=== PATIENT | male | born 1955 | race Caucasian/White ===

== ENCOUNTER 2022-10-02 16:06 | Outpatient (CLI) | payer BC, SELFPAY ==
[2022-10-02 13:31] LABS: Chloride* 106 mmol/L (96-114); Potassium* 4.4 mmol/L (3.6-5.1); Sodium* 139 mmol/L (135-149)
[2022-10-02 13:33] LABS: Bilirubin Total* 0.5 mg/dL (0.1-1.5); Carbon Dioxide* 29 mmol/L (20-32); Cholesterol* 191 mg/dL (90-199); Estimated Glomerular Filt Rate 83 ml/min; Total Protein* 6.8 g/dL (6.0-8.3)
[2022-10-02 13:34] LABS: Alanine Aminotransferase* 36 U/L (4-50); Alkaline Phosphatase* 77 U/L (40-150); Aspartate Amino Transferase* 29 U/L (12-35); Blood Urea Nitrogen* 12 mg/dL (7-30); Calcium* 8.9 mg/dL (8.4-10.6); Glucose* 106 mg/dL (60-115); HDL Cholesterol* 45 mg/dL (>=40); LDL Cholesterol Calculated 106 mg/dL (<100); Triglycerides* 200 mg/dL (40-149)
[2022-10-02 14:04] LABS: PSA Diagnostic* 2.94 ng/mL (0.10-4.00)
== END 2022-10-02 16:07 | disposition home or self-care (01) ==
PROVIDERS: PCP Internal Medicine; Visit Provider Internal Medicine
DX: E78.5 Hyperlipidemia, unspecified (principal); I10 Essential (primary) hypertension; Z12.5 Encounter for screening for malignant neoplasm of prostate
CPT/HCPCS: 80053; 80061; 84153

== ENCOUNTER 2023-03-03 10:53 | Emergency (ER) | payer BC, SELFPAY ==
[2023-03-03 11:00] VITALS: BP 151/70; PULSE 92; RESP 18; TEMP 36.4; O2SAT 97; BMI 36.9
--- NOTE | 2023-03-03 11:09 | CRLHL7_ITS ---
For Patients: As a result of the Century Cures Act, medical imaging exams and procedure reports are released immediately into your electronic medical record. You may view this report before your referring provider. If you have questions, please contact your health care provider. Indication: Pain, difficulty standing Comparison: None available. Technique: AP, lateral, and oblique views left foot were obtained. Findings: There is no displaced fracture or dislocation. There are hammertoe changes of the 2nd through 5th digits. There is mild osteopenia the metatarsophalangeal joints. There is no evidence of bony erosion. There is mild forefoot soft tissue swelling. Impression: Moderate forefoot soft tissue swelling with minimal osteopenia of the metatarsophalangeal joints which may represent mild inflammatory changes. No evidence of displaced fracture or bony erosion. Dictated by Akil Steen MD @ 03/03/2023 1:15:14 PM (Electronically Signed)
[2023-03-03] MEDS: HYDROCODONE/ACETAMIN 7.5-325 TABLET 1 TAB PO (11:15)
[2023-03-03] MEDS: KETOROLAC 10 MG TABLET PO (11:15)
--- NOTE | 2023-03-03 11:19 | ED.GENADULT ---
HPI - General Adult General Time Seen by Provider: 11:19 Date Seen: 03/03/23 Chief complaint: Extremity Pain/Injury, Lower Stated complaint: L foot pain, difficulty standing Time Seen by Provider: 03/03/23 10:57 Source: patient Mode of arrival: wheelchair Limitations: physical limitation History of Present Illness HPI narrative: Patient is a 67 year white male who has been fairly healthy other than elevated BMI, hypertension, dyslipidemia, who uses CPAP for NAYLA presents with severe left foot pain. He reports that he was doing some gurgling yesterday and stepping on a raised area at this door but did not think he injured himself. He had severe pain starting today. He did reports that it is under his foot just proximal to the ball of his foot. He denies redness or injury denies a history of gout. He has no other significant medical issues. He is not allergic to medications Related Data Previous Rx's Medication Instructions Recorded losartan 25 mg tablet 25 mg PO QDAY #90 tabs 06/27/22 metoprolol tartrate 50 mg tablet 50 mg PO BID Hypertension #180 tabs 10/10/22 mupirocin calcium 2 % topical cream 1 applic topical QDAY Rash #30 10/10/22 grams amlodipine 10 mg tablet 10 mg PO QDAY Hypertension #90 tabs 10/15/22 zolpidem 10 mg tablet 10 mg PO DAILY PRN insomnia #30 02/06/23 tabs hydrocodone 5 mg-acetaminophen 325 1 tab PO Q12H PRN pain #10 tabs 03/03/23 mg tablet ketorolac 10 mg tablet 10 mg PO Q8H PRN pain #10 tabs 03/03/23 Allergies Allergy/AdvReac Type Severity Reaction Status Date / Time No Known Drug Allergies Allergy Verified 03/03/23 11:00 Review of Systems Status of ROS: Reports: 6 or more systems reviewed and unremarkable except as noted in History and below [facility] Medical History Colon polyp ?K63.5 - Polyp of colon (ICD-10) History of adenomatous polyp of colon ?Z86.010 - Personal history of colonic polyps (ICD-10) NAYLA on CPAP ?G47.33 - Obstructive sleep apnea (adult) (pediatric) (ICD-10) ?Z99.89 - Dependence on other enabling machines and devices (ICD-10) Dyslipidemia ?E78.5 - Hyperlipidemia, unspecified (ICD-10) Allergic rhinitis ?J30.9 - Allergic rhinitis, unspecified (ICD-10) Hypertension ?I10 - Essential (primary) hypertension (ICD-10) Insomnia ?G47.00 - Insomnia, unspecified (ICD-10) Surgical History History of surgery on left wrist ?Z98.890 - Other specified postprocedural states (ICD-10) History of laparoscopic appendectomy ?Z90.49 - Acquired absence of other specified parts of digestive tract (ICD-10) Family History Father Coronary artery disease, Onset Age: 76 Brother Coronary artery disease, Onset Age: 59 Unknown High blood pressure Ovarian cancer Pancreatic cancer Diabetes Colon cancer COPD (chronic obstructive pulmonary disease) Social History Narrative: Nonsmoker. No illicit drug use. Rare EtOH. Smoking Status: Never smoker Do you use any of these nicotine containing products: None Second hand tobacco smoke exposure: No How often do you have a drink containing alcohol: 2-4 times a month How many standard drinks containing alcohol do you have on a typical day: 3 or 4 How often do you have six or more drinks on one occasion: Never AUDIT-C Alcohol total score: 3 Non-prescribed substance use: denies use Little interest or pleasure in doing things: not at all Feeling down, depressed, or hopeless: not at all service: No Exam Narrative: Exam Narrative: Objective: Vital signs show elevated blood pressure, afebrile Left foot exam shows no redness warmth erythema Got exquisite tenderness just proximal to the ball of the foot, no warmth erythema there No 1st MTP joint pain medially. No ascending cellulitic changes. No swelling of the foot or ankle Const: Vital Signs, click to edit/add: Vital Signs - 24 hr 03/03/23 11:00 Temperature 97.6 F Pulse Rate [Pulse Oximeter] 92 Respiratory Rate 18 Blood Pressure [Ri ght Upper Arm] 151/70 H Pulse Oximetry 97 Oxygen Delivery Me thod Room Air Course Vital Signs Vital signs: Initial Vital Signs Temperature 97.6 F 03/03/23 11:00 Temperature Source Temporal Artery Scan 03/03/23 11:00 Pulse Rate 92 03/03/23 11:00 Pulse Rhythm Regular 03/03/23 11:00 Respiratory Rate 18 03/03/23 11:00 Blood Pressure 151/70 H 03/03/23 11:00 Blood Pressure Mean 97 03/03/23 11:00 Blood Pressure Position Supine 03/03/23 11:00 Pulse Oximetry 97 03/03/23 11:00 Oxygen Delivery Method Room Air 03/03/23 11:00 Vital Signs Temperature 97.6 F 03/03/23 11:00 Pulse Rate 92 03/03/23 11:00 Respiratory Rate 18 03/03/23 11:00 Blood Pressure 151/70 H 03/03/23 11:00 Pulse Oximetry 97 03/03/23 11:00 Oxygen Delivery Method Room Air 03/03/23 11:00 Temperature 97.6 F 03/03/23 11:00 Pulse Rate 92 03/03/23 11:00 Respiratory Rate 18 03/03/23 11:00 Blood Pressure 151/70 H 03/03/23 11:00 Pulse Oximetry 97 03/03/23 11:00 Oxygen Delivery Method Room Air 03/03/23 11:00 Medical Decision Making MDM Narrative Medical decision making narrative: [age] year white male with onset of severe left foot pain. Rule out fracture rule out gout rule out infection. Will patient will get lab studies, x-ray of the left foot. At this point will give him because he is in pretty significant amount of pain [place] orally and Toradol orally. Disposition pending findings above Addendum: 12:41 p.m.. Patient has a negative x-ray by my review his uric acid level slightly elevated, his white count is normal. He got some good relief from the [place] and Toradol that he got. I will send him home with Toradol and a few [place]. He has to be careful with this with sleep apnea. He also has elevated uric acid he will weight bear as only as tolerated, and would recommend he see Dr. Wen regarding his elevated uric acid as well. He was comfortable this plan will return as needed. Lab Data Labs: Lab Results 03/03/23 03/03/23 Range/Units 11:45 11:45 WBC 7.28 (4.50-11.00) K/uL RBC 4.38 (4.30-5.90) m/uL Hgb 14.1 (13.5-17.5) gm/dL Hct 41.6 (37.0-53.0) % MCV 95 (80-100) fL MCH 32 (26-34) pg MCHC 34 (32-36) gm/dL RDW Coeff of Estela 12.1 (11.5-15.5) % Plt Count 197 (140-440) K/uL Neut % (Auto) 79.6 H (42.0-72.0) % Lymph % (Auto) 12.0 L (20-44) % [place] % (Auto) 7.7 (0.0-11.0) % Eos % (Auto) 0.1 (0.0-7.0) % Baso % (Auto) 0.3 (0.0-3.0) % Neut # (Auto) 5.80 (1.7-7.0) K/uL Lymph # (Auto) 0.90 (0.90-2.90) K/uL [place] # (Auto) 0.60 (0.00-0.90) K/UL Eos # (Auto) 0.01 (0.00-0.50) K/uL Baso # (Auto) 0.02 (0.00-0.30) K/uL Sodium 136 (135-149) mmol/L Potassium 3.7 (3.6-5.1) mmol/L Chloride 101 (96-114) mmol/L Carbon Dioxide 26 (20-32) mmol/L BUN 12 (7-30) mg/dL Creatinine 0.9 (0.5-1.5) mg/dL Estimated Creat Clear 82.12 Estimated GFR 94 ml/min Glucose 120 H (60-115) mg/dL Uric Acid 9.6 H Cancelled (2.2-8.4) mg/dL Calcium 9.3 (8.4-10.6) mg/dL C-Reactive Protein 3.4 H (0.5-1.0) mg/dL Discharge Plan Discharge Clinical Impression: Acute pain of left foot Patient Disposition: Home w/ Parent or Adult Condition: Stable Additional Instructions: Limited weight-bearing, Toradol as needed, [place] sparingly as it may cause worsening sleep apnea. Follow-up with your doctor within the next week or 2, talk about elevated uric acid level. Activity Level: Light activity Discharge Diet: Heart Healthy (2 gm sodium, low fat) Prescriptions: New ketorolac 10 mg tablet 10 mg PO Q8H PRN (Reason: pain) Qty: 10 0RF hydrocodone-acetaminophen 5-325 mg tablet 1 tab PO Q12H PRN (Reason: pain) Qty: 10 0RF No Action metoprolol tartrate 50 mg tablet 50 mg PO BID Qty: 180 3RF mupirocin calcium 2 % cream 1 applic topical QDAY Qty: 30 0RF losartan 25 mg tablet 25 mg PO QDAY Qty: 90 1RF amlodipine 10 mg tablet 10 mg PO QDAY Qty: 90 3RF zolpidem 10 mg tablet 10 mg PO DAILY PRN (Reason: insomnia) Qty: 30 0RF Follow Up/Referrals: Hamilton Calixto MD [Primary Care Provider] - Stand Alone Forms: [employer] Info Instructions
[2023-03-03 11:54] LABS: Basophils Absolute Auto 0.02 K/uL (0.00-0.30); Basophils Percent Auto 0.3 % (0.0-3.0); Eosinophils Absolute Auto 0.01 K/uL (0.00-0.50); Eosinophils Percent Auto 0.1 % (0.0-7.0); Hematocrit 41.6 % (37.0-53.0); Hemoglobin* 14.1 gm/dL (13.5-17.5); Immature Granulocytes Abs Auto 0.02 K/uL (0.00-0.30); Immature Granulocytes Pct Auto 0.3 %; Mean Corpuscular HGB Conc 34 gm/dL (32-36); Mean Corpuscular Hemoglobin 32 pg (26-34); Mean Corpuscular Volume 95 fL (80-100); Monocytes Percent Auto 7.7 % (0.0-11.0); Neutrophils Percent Auto 79.6 % (42.0-72.0); Platelet Count* 197 K/uL (140-440); RDW Coefficient of Variation % 12.1 % (11.5-15.5); Red Blood Count 4.38 m/uL (4.30-5.90); White Blood Count* 7.28 K/uL (4.50-11.00)
[2023-03-03 12:00] LABS: Slide Review Reflex No
[2023-03-03 12:05] LABS: Chloride* 101 mmol/L (96-114); Potassium* 3.7 mmol/L (3.6-5.1); Sodium* 136 mmol/L (135-149)
[2023-03-03 12:07] LABS: Creatinine* 0.9 mg/dL (0.5-1.5); Est. Creatinine Clearance* 82.12; Estimated Glomerular Filt Rate 94 ml/min
[2023-03-03 12:08] LABS: Blood Urea Nitrogen* 12 mg/dL (7-30); Carbon Dioxide* 26 mmol/L (20-32); Glucose* 120 mg/dL (60-115)
[2023-03-03 12:09] LABS: Calcium* 9.3 mg/dL (8.4-10.6); Uric Acid* 9.6 mg/dL (2.2-8.4)
[2023-03-03 12:11] LABS: C Reactive Protein* 3.4 mg/dL (0.5-1.0)
--- NOTE | 2023-03-03 12:42 | ED_ITS ---
HPI - General Adult General Chief complaint: Extremity Pain/Injury, Lower Stated complaint: L foot pain, difficulty standing Time Seen by Provider: 03/03/23 10:57 Source: patient Mode of arrival: wheelchair Limitations: physical limitation Related Data Previous Rx's Medication Instructions Recorded losartan 25 mg tablet 25 mg PO QDAY #90 tabs 06/27/22 metoprolol tartrate 50 mg tablet 50 mg PO BID Hypertension #180 tabs 10/10/22 mupirocin calcium 2 % topical cream 1 applic topical QDAY Rash #30 10/10/22 grams amlodipine 10 mg tablet 10 mg PO QDAY Hypertension #90 tabs 10/15/22 zolpidem 10 mg tablet 10 mg PO DAILY PRN insomnia #30 02/06/23 tabs hydrocodone 5 mg-acetaminophen 325 1 tab PO Q12H PRN pain #10 tabs 03/03/23 mg tablet ketorolac 10 mg tablet 10 mg PO Q8H PRN pain #10 tabs 03/03/23 Allergies Allergy/AdvReac Type Severity Reaction Status Date / Time No Known Drug Allergies Allergy Verified 03/03/23 11:00 [facility] Medical History Colon polyp ?K63.5 - Polyp of colon (ICD-10) History of adenomatous polyp of colon ?Z86.010 - Personal history of colonic polyps (ICD-10) NAYLA on CPAP ?G47.33 - Obstructive sleep apnea (adult) (pediatric) (ICD-10) ?Z99.89 - Dependence on other enabling machines and devices (ICD-10) Dyslipidemia ?E78.5 - Hyperlipidemia, unspecified (ICD-10) Allergic rhinitis ?J30.9 - Allergic rhinitis, unspecified (ICD-10) Hypertension ?I10 - Essential (primary) hypertension (ICD-10) Insomnia ?G47.00 - Insomnia, unspecified (ICD-10) Surgical History History of surgery on left wrist ?Z98.890 - Other specified postprocedural states (ICD-10) History of laparoscopic appendectomy ?Z90.49 - Acquired absence of other specified parts of digestive tract (ICD- 10) Family History Father Coronary artery disease, Onset Age: 76 Brother Coronary artery disease, Onset Age: 59 Unknown High blood pressure Ovarian cancer Pancreatic cancer Diabetes Colon cancer COPD (chronic obstructive pulmonary disease) Social History Narrative: Nonsmoker. No illicit drug use. Rare EtOH. Smoking Status: Never smoker Do you use any of these nicotine containing products: None Second hand tobacco smoke exposure: No How often do you have a drink containing alcohol: 2-4 times a month How many standard drinks containing alcohol do you have on a typical day: 3 or 4 How often do you have six or more drinks on one occasion: Never AUDIT-C Alcohol total score: 3 Non-prescribed substance use: denies use Little interest or pleasure in doing things: not at all Feeling down, depressed, or hopeless: not at all service: No Exam Const: Vital Signs, click to edit/add: Vital Signs - 24 hr 03/03/23 11:00 Temperature 97.6 F Pulse Rate [Pulse Oximeter] 92 Respiratory Rate 18 Blood Pressure [Ri ght Upper Arm] 151/70 H Pulse Oximetry 97 Oxygen Delivery Me thod Room Air Course Vital Signs Vital signs: Initial Vital Signs Temperature 97.6 F 03/03/23 11:00 Temperature Source Temporal Artery Scan 03/03/23 11:00 Pulse Rate 92 03/03/23 11:00 Pulse Rhythm Regular 03/03/23 11:00 Respiratory Rate 18 03/03/23 11:00 Blood Pressure 151/70 H 03/03/23 11:00 Blood Pressure Mean 97 03/03/23 11:00 Blood Pressure Position Supine 03/03/23 11:00 Pulse Oximetry 97 03/03/23 11:00 Oxygen Delivery Method Room Air 03/03/23 11:00 Vital Signs Temperature 97.6 F 03/03/23 11:00 Pulse Rate 92 03/03/23 11:00 Respiratory Rate 18 03/03/23 11:00 Blood Pressure 151/70 H 03/03/23 11:00 Pulse Oximetry 97 03/03/23 11:00 Oxygen Delivery Method Room Air 03/03/23 11:00 Temperature 97.6 F 03/03/23 11:00 Pulse Rate 92 03/03/23 11:00 Respiratory Rate 18 03/03/23 11:00 Blood Pressure 151/70 H 03/03/23 11:00 Pulse Oximetry 97 03/03/23 11:00 Oxygen Delivery Method Room Air 03/03/23 11:00 Medical Decision Making Lab Data Labs: Lab Results 03/03/23 03/03/23 Range/Units 11:45 11:45 WBC 7.28 (4.50-11.00) K/uL RBC 4.38 (4.30-5.90) m/uL Hgb 14.1 (13.5-17.5) gm/dL Hct 41.6 (37.0-53.0) % MCV 95 (80-100) fL MCH 32 (26-34) pg MCHC 34 (32-36) gm/dL RDW Coeff of Estela 12.1 (11.5-15.5) % Plt Count 197 (140-440) K/uL Neut % (Auto) 79.6 H (42.0-72.0) % Lymph % (Auto) 12.0 L (20-44) % [place] % (Auto) 7.7 (0.0-11.0) % Eos % (Auto) 0.1 (0.0-7.0) % Baso % (Auto) 0.3 (0.0-3.0) % Neut # (Auto) 5.80 (1.7-7.0) K/uL Lymph # (Auto) 0.90 (0.90-2.90) K/uL [place] # (Auto) 0.60 (0.00-0.90) K/UL Eos # (Auto) 0.01 (0.00-0.50) K/uL Baso # (Auto) 0.02 (0.00-0.30) K/uL Sodium 136 (135-149) mmol/L Potassium 3.7 (3.6-5.1) mmol/L Chloride 101 (96-114) mmol/L Carbon Dioxide 26 (20-32) mmol/L BUN 12 (7-30) mg/dL Creatinine 0.9 (0.5-1.5) mg/dL Estimated Creat Clear 82.12 Estimated GFR 94 ml/min Glucose 120 H (60-115) mg/dL Uric Acid 9.6 H Cancelled (2.2-8.4) mg/dL Calcium 9.3 (8.4-10.6) mg/dL C-Reactive Protein 3.4 H (0.5-1.0) mg/dL Discharge Plan Discharge Clinical Impression: Acute pain of left foot Patient Disposition: Home w/ Parent or Adult Condition: Stable Additional Instructions: Limited weight-bearing, Toradol as needed, [place] sparingly as it may cause worsening sleep apnea. Follow-up with your doctor within the next week or 2, talk about elevated uric acid level. Activity Level: Light activity Discharge Diet: Heart Healthy (2 gm sodium, low fat) Prescriptions: New ketorolac 10 mg tablet 10 mg PO Q8H PRN (Reason: pain) Qty: 10 0RF hydrocodone-acetaminophen 5-325 mg tablet 1 tab PO Q12H PRN (Reason: pain) Qty: 10 0RF No Action metoprolol tartrate 50 mg tablet 50 mg PO BID Qty: 180 3RF mupirocin calcium 2 % cream 1 applic topical QDAY Qty: 30 0RF losartan 25 mg tablet 25 mg PO QDAY Qty: 90 1RF amlodipine 10 mg tablet 10 mg PO QDAY Qty: 90 3RF zolpidem 10 mg tablet 10 mg PO DAILY PRN (Reason: insomnia) Qty: 30 0RF Follow Up/Referrals: Hamilton Calixto MD [Primary Care Provider] - Stand Alone Forms: [employer] Info Instructions
== END 2023-03-03 13:12 | disposition home or self-care (01) ==
PROVIDERS: Emergency Provider Family Medicine; PCP Internal Medicine
DX: M79.672 Pain in left foot (principal)
CPT/HCPCS: 36415; 73630; 80048; 84550; 85025; 86140; 99283; 99284; A9270

== ENCOUNTER 2023-10-10 07:40 | Outpatient (CLI) | payer BC, SELFPAY ==
--- OUTSIDE RECORDS SUMMARY | 2023-10-11 05:37 | XMS_ITS | Referral Summary ---
Author Name Unknown Organization [place] Address [facility] [place] [address] Care Team Providers Care Mental Retardation Nurse Name Role Phone Isak Dorado MD Primary Care Provider + Allergies No known active allergies Medications Medication Sig Dispensed Refills Start Date End Date Status NASONEX 50 MCG/ACT NA SUSP None Entered 0 Active IBUPROFEN 200 MG OR TABS 1 TABLET EVERY 4 TO 6 HOURS NEEDED 0 Active lisinopril (PRINIVIL/ZESTRIL) 10 MG tablet TAKE 1 TABLET BY MOUTH DAILY PATIENT IS DUE FOR ANNUAL LABS. 0 04/20/2019 Active mupirocin (BACTROBAN) 2 % external ointmentIndications: Cellulitis of abdominal wall Apply topically 2 times daily 22 g 1 04/25/2019 Active doxycycline monohydrate (ADOXA) 100 MG tabletIndications:Ce llulitis of abdominal wall Take 1 tablet (100 mg) by mouth daily 20 tablet 0 04/25/2019 Active Active Problems Problem Noted Date Diagnosed Date CARDIOVASCULAR SCREENING; LDL GOAL LESS THAN 160 07/02/2010 Immunizations Name Administration Dates Next Due Influenza (IIV3) PF 07/15/2007 Pneumococcal 23 valent 04/16/2006 TD,PF 7+ (Tenivac) 04/16/2006 04/16/2016 Social History Tobacco Use Types Packs/Day Years Used Date Smoking Tobacco: Never Smokeless Tobacco: Never Alcohol Use Standard Drinks/Week Comments Yes 0 (1 standard drink = 0.6 oz pur e alcohol) 8 beers weekly Sex and Gender Information Value Date Recorded Sex Assigned at Not on file Gender Identity Not on file Sexual Orientation Not on file Last Filed Vital Signs Vital Sign Reading Time Taken Comments Blood Pressure 148/76 04/25/2019 8:32 AM CDT Pulse 86 04/25/2019 8:32 AM CDT Temperature 36.7 ??C (98 ??F) 04/25/2019 8:32 AM CDT Respiratory Rate 16 04/25/2019 8:32 AM CDT Oxygen Saturation 97% 04/25/2019 8:32 AM CDT Inhaled Oxygen Concentration - - Weight 112.9 kg (249 lb) 04/25/2019 8:32 AM CDT Height 185.4 cm (6' 1) 04/25/2019 8:32 AM CDT Body Mass Index 32.85 04/25/2019 8:32 AM CDT Plan of Treatment Not on file Care Teams Mental Retardation Nurse Relationship Specialty Start Date End Date Isak Dorado MD PCP - General 04/25/19
--- OUTSIDE RECORDS SUMMARY | 2023-10-11 05:37 | XMS_ITS | Clinical Summary ---
Author Name Unknown Organization [place] Address [facility] [place] [address] Care Team Providers Care Slot Tag Inserter Name Role Phone Isak Dorado MD Primary [...] valent 04/16/2006 TD,PF 7+ (Tenivac) 04/16/2006 04/16/2016 Family History Medical History Relation Comments Heart Disease Brother of congesti ve heart failure 59 Heart Disease Father of congesti ve heart failure at 76 Hypertension Mother Relation Status Comments Brother Father Mother Social History Tobacco Use Types Packs/Day Years [...] of Treatment Not on file Care Teams Slot Tag Inserter Relationship Specialty Start Date End Date Isak Dorado MD PCP - General 04/25/19
--- OUTSIDE RECORDS SUMMARY | 2023-10-11 05:37 | XMS_ITS | Clinical Summary ---
Author Name Unknown Organization [facility] [place] [address] Care Team Providers Care Predatory Game Hunter Name Role Phone Pcp, No Primary Care Provider Unavailabl e Allergies No known active allergies Medications Medication Sig Dispensed Refills Start Date End Date Status fluticasone (50 mcg per actuation) nasal solution (FLONASE) Inhale 1 [place] into both nostrils once daily. 1 Bottle 0 05/14/2013 Active lisinopril (PRINIVIL; ZESTRIL) 10 mg tablet Take 1 tablet by mouth once daily. 0 10/15/2017 Active aspirin (ECOTRIN) 81 mg enteric coated tablet Take 1 tablet by mouth once daily with a meal. 0 10/15/2017 Active multivitamin capsule Take 1 capsule by mouth once daily. 0 10/15/2017 Active magnesium oxide (MAG-OX 400) 400 mg tablet Take 1 tablet by mouth once daily. 0 10/15/2017 Active Active Problems Problem Noted Date Diagnosed Date Diverticulosis of large intestine without hemorr ivette 10/15/2017 Polyp of colon 10/15/2017 History of colon polyps 10/15/2017 Adenomatous colon polyp 05/18/2013 Overview: Colonoscopy 05/2013 polyp repeat in 5 years Colonoscopy 10/2017 polyp, repeat in 5 years Social History Tobacco Use Types Packs/Day Years Used Date Smoking Tobacco: Never Smokeless Tobacco: Never Tobacco Cessation:Counseling Given: Yes Alcohol Use Standard Drinks/Week Comments Not Asked 0 (1 standard drink = 0.6 oz pur e alcohol) Sex and Gender Information Value Date Recorded Sex Assigned at Not on file Gender Identity Not on file Sexual Orientation Not on file Obstetrics History Last Filed Vital Signs Vital Sign Reading Time Taken Comments Blood Pressure 121/80 05/14/2013 8:33 AM CDT Pulse 61 05/14/2013 8:33 AM CDT Temperature - - Respiratory Rate - - Oxygen Saturation 97% 05/14/2013 8:33 AM CDT Inhaled Oxygen Concentration - - Weight - - Height - - Body Mass Index - - Plan of Treatment Health Maintenance Due Date Last Done Comments Tdap 1967 Depression screening for age 12+ 1968 BMI (ht and wt on same day) for age 18+ 1974 Hepatitis C screening for ag e 18-79 1974 Tetanus booster 1976 Lipids for age 45-75 2001 Zoster (shingles) series for age 50+ (1 of 2) 2006 Pneumococcal series for age 65+ (1 of 1 - PCV) 2021 Colonoscopy through age 75 10/15/202210/15, 10/15/2017, 05/14/2013, Additional history exists COVID-19 vaccine series (3 - 2022-24 season) 2023 05/28/2021, 04/21/2021 Influenza for age 65+ 05/03/2023 Care Teams Predatory Game Hunter Relationship Specialty Start Date End Date Pcp, No . PCP - General 03/30/13
== END 2023-10-10 07:41 | disposition home or self-care (01) ==
LOC: NFLDREF 10-11 05:35
PROVIDERS: PCP Internal Medicine; Referring Provider Internal Medicine; Visit Provider Internal Medicine
DX: E78.5 Hyperlipidemia, unspecified (principal); I10 Essential (primary) hypertension; M10.9 Gout, unspecified; Z12.5 Encounter for screening for malignant neoplasm of prostate
CPT/HCPCS: 80053; 80061; 84550; G0103

== ENCOUNTER 2023-11-19 08:30 | Outpatient (CLI) | payer BC, SELFPAY ==
--- NOTE | 2023-11-19 09:00 | CT_ITS ---
Patient: HEENA Booth [facility] Facility:?[facility] Patient ID:?[id number] Site Patient ID:?[id number]. Site :?[id number] Study:?CT-Head W/ and W/O Cont 124CC [id number]/19/2024 9:31:21 AM Ordering Physician:JAMAICA JACK Final Report: Indication: Dizziness. Technique: CT of the head with multiplanar reconstruction prior to and following administration 124 cc Isovue iodinated intravenous contrast. Comparison: None available. Findings: No acute intracranial hemorrhage. A focal hypodensity is noted within the left anterior centrum semiovale (series 4, image 36). No focus of abnormal contrast enhancement is identified. The ventricles are normal in size. Flow is preserved within the larger intracranial arteries. No suspicious calvarial lesion is identified. The orbits are unremarkable. The imaged paranasal sinuses and mastoid air cells are clear. Impression: 1. No acute intracranial abnormality. 2. 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 If there is ongoing clinical concern, MRI could be obtained for further evaluation. 3. No focus of abnormal enhancement. Please note that all CT scans at this facility use dose modulation, iterative reconstruction, and/or weight-based dosing when appropriate to reduce radiation dose to as low as reasonably achievable. Dictated by Matt Vazquez MD @ 11/19/2023 4:38:29 PM Signed by:?Matt Vazquez MD @11/19/2023 4:38:29 PM (Electronic Signature)
[2023-11-19 09:08] LABS: Creatinine* 0.9 mg/dL (0.5-1.5); Estimated Glomerular Filt Rate 94 ml/min
== END 2023-11-19 08:31 | disposition home or self-care (01) ==
PROVIDERS: PCP Internal Medicine; Visit Provider Internal Medicine
DX: R42 Dizziness and giddiness (principal)
CPT/HCPCS: 36415; 70470; 82565; Q9967

== ENCOUNTER 2023-12-12 10:00 | Outpatient (RCR) | payer BC, SELFPAY ==
--- NOTE | 2023-11-27 13:45 | PT.OPEX ---
PT [place] Outpatient Eval initial eval requires signature PT [facility] Outpatient Eval Start: 11/27/23 08:26 Freq: Status: Active Protocol: Document 11/27/23 08:29 BETO (Rec: 11/27/23 13:39 BETO [id number]) E-signed By John Loza DPT Physical Therapy Outpatient Evaluation Insurance Information Insurance Name [employer] Medical Diagnosis Medical Diagnosis and ICD Code (s) Benign paroxysmal positional vertigo, unspecified ear Treating Diagnosis and ICD Code(s) R posterior canal BPPV, imbalance. Referring MD [place] cash Subjective Subjective Jordan comes into clinic today dealing with what he would call 'fogginess that can lead to dizziness'. Initially these symptoms began back in May where he felt more unsteady on his feet or more dizzy symptoms and he went to the ED where they taught him the Chidi maneuver. Feels like he was able to control and manage his symptoms fairly well with this until August. Since then he has had been dealing with more consistent symptoms. Feels like mornings are better with afternoons being better. Does also, have sensitivity to light, and L sided neck pain. Has a CT that showed old infarct and waiting to get results of MRI. Was told by there is could potentially be from a small stroke Current Work Status Retired Precautions Treatment Precautions/Contraindications allergies, htn, Objective Posture [id number] Other/Pertinent Objective OBJECTIVE Cervical AROM Rotation: R 56 deg, L 67 deg Flex: 45 deg Ext: 25 deg LE MMT WNL except R sided hip flexion knee ext ankle DF all 4+/5 Coordination testing (finger to nose): - H-test: - Saccades: - Head thrust test - Gait and Balance Gait: decreased pace, step to / partial step through pattern , arm out reached slightly Modified CTSIB- Clinical Test of Sensory Interaction and Balance - need 30 seconds Romberg eyes open firm surface : 30 sec min sway Romberg eyes closed firm surface: 30 sec min- mod sway Romberg eyes open foam surface : 30 sec min- mod sway Romberg eyes closed foam surface: 30 sec mod sway Neuro/Tone/Sensation/Reflexes Sensation: normal Kane Hallpike (post canal): positive symptomatically on L side pt was more symptomatic and no notable nystagmus Horizontal roll test( horizontal canal): negative Cervical mobility is limited in L-R side glides C3-C7 increased tenderness with upper trap and suboccipital palpation L>R Functional Test Performed & Score 4-Item DGI: vertical head turns 1/3, horizontal head turns 1/3, gait on level surface 2/3, gait with speed change /3= 5/12 Assessment Assessment/Impression ASSESSMENT/ IMPRESSION Testing revealed signs and symptoms consistent with L posterior canal BPPV. Following canalith repositioning maneuver x 1 patient presented with mildly improved. Decreased B (R>L) cervical rot and ext limited ability to perform cervical range of motion.Sensory disorganization found with balance testing with overreliance on her vision for balance. All other neurological testing normal. Patient is a moderate-severe falls risk based on her score on the 4-item Dynamic Gait Index testing. Recommended pt avoid sustained flex or ext head positions over the next 48 hours. he would benefit from continued skilled PT intervention to address current limitations. Plan of Care Rehabilitation Potential Good Physical Therapy Goals PHYSICAL THERAPY GOALS/ Functional Outcomes Therapy goals to be completed in 8-10 weeks: 1.Patient will display resolution of L posterior canalithiasis BPPV symptoms for >7 consecutive days to improve safety with household cleaning activities. 2.Patient will display improved Romberg balance on foam surface with eyes closed >30 sec with minimal sway to decrease falls risk on compliant surfaces. 3.Patient will display improved 4-item DGI testing > 06/13 to decrease falls risk with dynamic gait tasks. Coordination/Communication With Referral Source Treatment Plan/Direct Interventions Canalith Repositioning,Gait Training,Joint Mobilization, Manual Therapy,Neuromuscular Re-ed,Self-Care/Home Management,Therapeutic Activities,Therapeutic Exercises Frequency/Duration Frequency/ Duration 1-2x per week for as needed for 8-10 weeks , decreasing visit frequency, as able. Patient Will Be Discharged From Therapy Completion of LTG(s), Independent w/HEP Evaluation Billing Untimed Code Treatment Minutes 35 Complexity Moderate Certification Information Physician Comment/Change : Physician NPI Number #
== END 2024-02-20 15:03 | disposition home or self-care (01) ==
PROVIDERS: PCP Internal Medicine; Visit Provider Internal Medicine
DX: H81.11 Benign paroxysmal vertigo, right ear (principal); R26.81 Unsteadiness on feet; Z51.89 Encounter for other specified aftercare
CPT/HCPCS: 95992; 97110; 97112; 97140; 97162

== ENCOUNTER 2024-06-26 10:00 | Outpatient (RCR) | payer BC, SELFPAY ==
--- NOTE | 2024-04-21 09:00 | PT.OPE ---
PT [place] Outpatient Eval PT [facility] Outpatient Eval Start: 04/17/24 12:31 Freq: Status: Active Protocol: Document 04/17/24 12:31 ERICK (Rec: 04/17/24 12:32 ERICK [id number]) E-signed By Isiah Ponce DPT, MS Physical Therapy Outpatient Evaluation Insurance Information Recert Due Date 07/16/24 Insurance Name Medicare B Medical Diagnosis Other abnormalities of gait and mobility Treating Diagnosis Dizziness, sensory disorganization, decreased B CS flexibility, B (L>R) CS muscular hypertonicity with TPs, B LE weakness. Subjective Preferred Name Jordan Subjective Pt is a 68 y.o. male who presents to PT with c/o imbalance and disorientated/ dizziness sensation with head movements. Pt describes sxs as a strange foggy headedness with looking up<>down that can lead to dizziness/ lightheadedness for ~1 minute. Initially these symptoms began back in May 2023 as unsteadiness on his feet and dizziness with positional changes with the Chidi maneuver being helpful during a trip to the ED. Feels like he was able to control and manage his symptoms well with home Chidi maneuvers until August 2023 experiencing more consistent sxs since this time. Notes L-sided neck pain since this time with self- release helping decrease dizziness sxs. Feels like mornings are better with afternoons being better. MRI and CT scan earlier this year found previous stroke infarct but does not recall any definitive event with stroke- like sxs. PMH includes HTN, previous CVA, depression. AGGR factors: uneven surfaces, head movements, walking. ALLEV factors: rest. 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 Pt over reliant on his vision for balance with significant deficits found in static and dynamic balance. CS musculature tightness, hypertonicity and TPs appear to be leading to cervicogenic dizziness sxs with elevated stress levels since CVA dx contributing to sxs. Excellent response to MT with minimal dizziness or lightheadedness sxs with head movements and amb following. All other neurological testing normal. Patient is a falls risk based on SLS and 4- item Dynamic Gait Index testing. He will benefit from continued skilled PT intervention to address current limitations. Primary Functional Limitations Uneven surfaces, head movements, walking Plan of Care Rehabilitation Potential Excellent Physical Therapy Goals Short-term therapy goals to be completed in 4 weeks: 1. Pt will display improved B CS rot AROM >65 deg without neck pain to check blind spots while driving. 2. Pt will report >50% improvement in HAs for >3 consecutive days to improve ability to concentrate with work and daily activities. Long-term therapy goals to be completed in 10 weeks: 1. Pt will be I and compliant with her HEP for alf sx management 2. Pt will report resolution of dizziness with all head positions and daily activities for >5 consecutive days to improve tolerance and safety with yardwork and daily activities. 3. Pt will display improved Romberg balance on foam surface with eyes closed >5 sec with minimal sway to decrease falls risk. 4. Pt will report >20 point improvement in dizziness handicap inventory questionnaire to significantly improve tolerance to functional activities. Coordination/Communication With Referral Source Treatment Plan/Direct Interventions Joint Mobilization,Manual Therapy,Neuromuscular Re-ed, Therapeutic Exercises Frequency/Duration 1x per week for 6-10 visits Patient Will Be Discharged From Therapy Completion of LTG(s),Skills Plateau,Independent w/HEP, Independently Progressing Evaluation Billing Untimed Code Treatment Minutes 26 Complexity Moderate Certification Information Initial Certification Date 04/17/24 Ending Certification Date 07/16/24 Provider Signature Required Yes Provider Signature Shows Agreement With POC & Medical Necessity Physician NPI Number Write NPI# Here Physician Comment/Change : Physician Signature & Date Requested Please Sign/Date Here
== END 2024-10-24 23:59 | disposition home or self-care (01) ==
PROVIDERS: PCP Internal Medicine; Visit Provider Otolaryngology
DX: R26.89 Other abnormalities of gait and mobility (principal); R42 Dizziness and giddiness; R29.898 Other symptoms and signs involving the musculoskeletal system; Z51.89 Encounter for other specified aftercare
CPT/HCPCS: 97110; 97140; 97162

== ENCOUNTER 2024-07-01 07:41 | Outpatient (CLI) | payer BC, SELFPAY ==
--- OUTSIDE RECORDS SUMMARY | 2024-07-01 07:44 | XMS_ITS | Clinical Summary ---
Author Organization [facility] Address [place], [place] [address] Care Team Providers Care Director Of Social Services Name Role Phone Pcp, No Primary Care Provider Unavailabl e Allergies No known active allergies Medications Medication Sig Dispensed Refills Start Date End Date Status fluticasone (50 mcg per actuation) nasal solution (FLONASE) Inhale 1 [place] into both nostrils once daily. 1 Bottle [...] colon polyps 10/15/2017 Adenomatous colon polyp 05/18/2013 Overview (10/16/2017): Colonoscopy 05/2013 polyp repeat in 5 years [...] Mass Index - - Plan of Treatment Upcoming Encounters Date Type Department Care Team (Late st Contact Info) Description 07/01/2024 8:00 AM CDT Ancillary Procedure [facility] [address] [place] [address] Health Maintenance Due Date Last Done Comments [...] 05/14/2013, Additional history exists COVID-19 vaccine series ( season) 2024 05/28/2021, 04/21/2021 Influenza for age 65+ 05/03/2024 Procedures Procedure Name Priority Date/Time Associated Diagnosis Comments COLONOSCOPY 10/15/2017 7:36 AM WARP COILER from Last 3 Months or Most Recently Relevant to Health Maintenance Results * COLONOSCOPY (10/15/2017 7:36 AM WARP COILER) 10/15/2017 7:36 AM WARP COILER Narrative Transcriptions Lonnie Roberts MD - 10/15/2017 8:49 AM CST Patient Name: Jordan King Procedure Date: 10/15/2017 Gender: Male Date of : 1955 Admit Type: Outpatient Procedure: Colonoscopy Proceduralist: Lonnie Roberts MD , Miguelina Lacy (Nurse) Indications/Pre-Op Diagnosis: Surveillance: Personal history ofadenomatous polyps on last colonoscopy 5 years ago, Last colonoscopy: May 2013 Medications: Fentanyl 100 micrograms IV, Midazolam 6 mgIV, The level of sedation administered wasmoderate Procedure Description: The patient had risks, benefits and alternatives explained to andgave informed consent. The patient had a stable cardiopulmonary status and judged an adequate candidate for conscious sedation. The [id number] was passed through the anus and advanced tothe terminal ileum. The colonoscopy was performed without difficulty. The patient tolerated the procedure well. The quality of the bowel preparation was good. The terminal ileum, ileocecal valve,appendiceal orifice, and rectum were photographed. Complications: No immediate complications. Estimated Blood Loss & Specimen: Estimated blood loss: none. Specimen collected - Yes and sent to Laboratory Findings: The perianal and digital rectal examinations were normal. A 3 mm polyp was found in the ascending colon. The polyp was sessile. The polyp was removed with a cold biopsy forceps. Resection and retrieval were complete. Many small and large-mouthed diverticula were found in the sigmoid colon, descending colon and ascending colon. The exam was otherwise without abnormality on direct and retroflexion views. Impressions/Post-Op Diagnosis: - One 3 mm polyp in the ascending colon, removed with a cold biopsy forceps. Resected and retrieved. - Diverticulosis in the sigmoid colon, in the descending colon and in the ascending colon. - The examination was otherwise normal on direct and retroflexionviews. Recommendation: - Patient has a contact number available for emergencies. The signsand symptoms of potential delayed complications were discussed with the patient. Return to normal activities tomorrow. Written discharge instructions were provided to the patient. - Resume previous diet. - Continue present medications. - Await pathology results. - Repeat colonoscopy in 5 years for surveillance. Moderate Sedation: Moderate (conscious) sedation was administered by the endoscopy nurse and supervised by the endoscopist. The following parameters were monitored: oxygen saturation, heart rate, respiratory rate, blood pressure, adequacy of pulmonary ventilation and reponse to care. Please refer to the patien'ts medical record flowsheets and nursing notes for moderate sedation details. Total physician intraservice time was 21 minutes. Lonnie Roberts MD 10/15/2017 8:49:35 AM This report has been signed electronically. Note Initiated On: 10/15/2017 7:36 AM Procedure Code(s): --- Professional --- 64971, Colonoscopy, flexible; with biopsy, single or multiple Diagnosis Code(s): --- Professional --- D12.2, Benign neoplasm of ascending colon Z86.010, Personal history of colonicpolyps K57.30, Diverticulosis of large intestine without perforation or abscess withoutbleeding CPT copyright 2016 [employer]. All rights reserved. The codes documented in this report are preliminary and upon death surveys coder reviewmay be revised to meet current compliance requirements. Scope In: 8:12:39 AM Scope Withdrawal Time 0 hours 14 minutes 51 seconds Scope Out: 8:31:42 AM Lonnie Roberts MD PROCEDURE ORD from Last 3 Months or Most Recently Relevant to Health Maintenance Care Teams Director Of Social Services Relationship Specialty Start Date End Date Pcp, No . PCP - General 03/30/13
--- OUTSIDE RECORDS SUMMARY | 2024-07-01 07:44 | XMS_ITS | Referral Summary ---
Author Organization [place] Address [facility] [place] [address] Care Team Providers Care Biological Science Technician Fish Name Role Phone Isak Dorado MD Primary Care Provider + Allergies No known active allergies Medications NASONEX 50 MCG/ACT NA SUSP None Entered A ctive IBUPROFEN 200 MG OR TABS 1 TABLET EVERY 4 TO 6 HOURS NEEDED Active lisinopril (PRINIVIL/ZESTRI L) 10 MG tablet TAKE 1 TABLET BY MOUTH DAILY PATIENT IS DUE FOR ANNUAL LABS. 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
--- OUTSIDE RECORDS SUMMARY | 2024-07-01 07:44 | XMS_ITS | Clinical Summary ---
Author Organization [place] Address [facility] 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 - General 04/25/19
== END 2024-07-01 07:42 | disposition home or self-care (01) ==
LOC: RAD 07:41
PROVIDERS: PCP Internal Medicine; Visit Provider Internal Medicine
DX: R42 Dizziness and giddiness (principal); I34.0 Nonrheumatic mitral (valve) insufficiency
CPT/HCPCS: 93306

== ENCOUNTER 2024-12-28 08:40 | Outpatient (CLI) | payer BC, SELFPAY ==
--- NOTE | 2024-12-28 09:47 | P.ANES_ITS ---
Anesthesia Charges Start Date/Time Anesthesia Start Date: 12/28/24 Anesthesia Start Time: 08:15 Stop Date/Time Anesthesia Stop Date: 12/28/24 Anesthesia Stop Time: 09:43 Coding CPT Codes CPT Codes: ANES LWR INTST SCR COLSC - 11404 ([id number]) P3 - PATIENT W/SEVERE SYS DISEASE, QK - TYPE COPY EXAMINER 2-4 CNCRNT ANES PROC, QX - THERAPEUTIC DIETITIAN SVC W/ MD MED DIRECTION
--- NOTE | 2024-12-28 09:47 | W.ANESCHARGE ---
Anesthesia Charges Start Date/Time Anesthesia Start Date: 12/28/24 Anesthesia Start Time: 08:15 Stop Date/Time Anesthesia Stop Date: 12/28/24 Anesthesia Stop Time: 09:43 Coding CPT Codes CPT Codes: ANES LWR INTST SCR COLSC - 62106 ([id number]) P3 - PATIENT W/SEVERE SYS DISEASE, QK - MARINE FIREFIGHTER 2-4 CNCRNT ANES PROC, QX - BUSINESS SYSTEMS ADMINISTRATOR SVC W/ MD MED DIRECTION
--- NOTE | 2024-12-28 12:42 | P.ANES_ITS ---
Anesthesia Charges Start Date/Time Anesthesia Start Date: 12/28/24 Anesthesia Start Time: 08:15 Stop Date/Time Anesthesia Stop Date: 12/28/24 Anesthesia Stop Time: 09:43 Coding CPT Codes CPT Codes: ANES LWR INTST SCR COLSC - 19145 ([id number]) P3 - PATIENT W/SEVERE SYS DISEASE, QK - PATTERN DRUM MAKER 2-4 CNCRNT ANES PROC, QX - COMMUNICATIONS SUPERINTENDENT SVC W/ MD MED DIRECTION
--- NOTE | 2024-12-28 12:42 | W.ANESCHARGE ---
Anesthesia Charges Start Date/Time Anesthesia Start Date: 12/28/24 Anesthesia Start Time: 08:15 Stop Date/Time Anesthesia Stop Date: 12/28/24 Anesthesia Stop Time: 09:43 Coding CPT Codes CPT Codes: ANES LWR INTST SCR COLSC - 21609 ([id number]) P3 - PATIENT W/SEVERE SYS DISEASE, QK - REPORTING SPECIALIST 2-4 CNCRNT ANES PROC, QX - NUTRITION TECH SVC W/ MD MED DIRECTION
== END 2024-12-28 08:41 | disposition home or self-care (01) ==
LOC: OP CLINIC 08:43
PROVIDERS: PCP Internal Medicine; Visit Provider Internal Medicine
DX: Z12.11 Encounter for screening for malignant neoplasm of colon (principal); Z86.0100 Personal history of colon polyps, unspecified; K57.30 Diverticulosis of large intestine without perforation or abscess without bleeding
CPT/HCPCS: 00812; 45378; J2704

== ENCOUNTER 2025-01-13 09:35 | Outpatient (CLI) | payer BC, SELFPAY | END 2025-01-13 09:36 | disposition home or self-care (01) | PROVIDERS: PCP Internal Medicine; Visit Provider Internal Medicine | DX: I10 Essential (primary) hypertension (principal); E78.5 Hyperlipidemia, unspecified; Z12.5 Encounter for screening for malignant neoplasm of prostate | CPT/HCPCS: 80053; 80061; G0103 ==